=== PATIENT | female | born 1990 | race Caucasian/White ===

== ENCOUNTER 2019-02-06 13:06 | Observation (INO) ==
[2019-02-06 13:58] LABS: Bilirubin,Urine Negative (Negative); Blood,Urine Negative (Negative); Clarity,Urine Clear (Clear); Color,Urine Yellow (Yellow); Glucose,Urine (UA) Normal (Normal); Ketones,Urine 40 mg/dL (Negative); Leukocyte Esterase,Urine Negative (Negative); Nitrite,Urine Negative (Negative); Protein,Urine Negative (Neg-Trace); Specific Gravity,Urine 1.021 (1.010-1.025); Urobilinogen,Urine Normal (Normal)
[2019-02-06 14:02] LABS: Basophils % 0.1 %; Eosinophils % 0.3 %; Hematocrit 33.5 % (35.3-44.9); Hemoglobin 11.4 g/dL (11.5-15.4); Immature Granulocytes % 0.3 % (0-4); Lymphocytes # 1.3 K/mcL (0.6-4.6); Lymphocytes % 15.2 %; Mean Corpuscular Hemoglobin 30.2 pg (28.0-33.3); Mean Corpuscular Volume 88.9 fL (83.0-100.0); Mean Platelet Volume 10.7 fL (9.4-12.4); Monocytes # 0.5 K/mcL (0.0-1.3); Monocytes % 5.8 %; Neutrophils # 6.8 K/mcL (1.6-8.9); Platelet Count 165 K/mcL (140-400); Red Blood Count 3.77 M/mcL (3.82-4.97); Red Cell Distribution Width 13.6 % (11.5-14.5); Segmented Neutrophils % 78.3 %; White Blood Count 8.7 K/mcL (4.3-11.1)
[2019-02-06 14:07] LABS: Protein/Creatinine Ratio,Urine 0.12 mg/mg (0.00-0.20)
[2019-02-06 14:18] LABS: Amylase 30 Units/L (29-103); Lipase 23 Units/L (11-82)
[2019-02-06 14:19] LABS: Alanine Aminotransferase 10 Units/L (7-52); Aspartate Amino Transferase 16 Units/L (13-39); BUN/Creatinine Ratio 19 (6-26); Blood Urea Nitrogen 10 mg/dL (6-20); Lactate Dehydrogenase 125 Units/L (140-271); Uric Acid 3.9 mg/dL (2.3-7.6); eGFR For African Americans > 60 (> 60); eGFR For Non-African Americans > 60 (> 60)
--- NOTE | 2019-02-06 15:50 | Discharge Summary ---
Date of Encounter: 02/06/19 Time of Encounter: 15:50 - Discharge Diagnosis (1) 33 weeks gestation of Priority: Primary Status: Acute Comments: admitted for observation (2) NST (non-stress test) reactive on surveillance Priority: Secondary Status: Acute Comments: FHR baseline 135 bpm moderate variability +15x15 accels no decels noted. - Discharge Medications Prescriptions: No Action Ferrous Sulfate [Iron] 325 mg PO DAILY Pnv95/Ferrous Fumarate/FA [ Vitamin Tablet] 1 tab PO DAILY Home Medications: Ferrous Sulfate [Iron] 325 mg PO DAILY 02/06/19 [History] Pnv95/Ferrous Fumarate/FA [ Vitamin Tablet] 1 tab PO DAILY 02/06/19 [History] Allergies/Adverse Reactions: Allergy/AdvReac Type Severity Reaction Status Date / Time No Known Allergies Allergy Verified 02/06/19 13:28 Data Procedures and tests throughout hospitalization: Laboratory Tests 02/06/19 02/06/19 02/06/19 13:42 13:42 13:42 WBC 8.7 RBC 3.77 L Hgb 11.4 L Hct 33.5 L MCV 88.9 MCH 30.2 MCHC 34.0 RDW 13.6 Plt Count 165 MPV 10.7 Immature Gran % 0.3 Seg Neutrophils % 78.3 Lymphocytes % 15.2 Monocytes % 5.8 Eosinophils % 0.3 Basophils % 0.1 Neutrophils # 6.8 Lymphocytes # 1.3 Monocytes # 0.5 Eosinophils # 0.0 Basophils # 0.0 BUN Creatinine Est GFR ( Amer) Est GFR (Non-Af Amer) BUN/Creatinine Ratio Uric Acid AST ALT Lactate Dehydrogenase Amylase 30 Lipase 23 Urine Color Urine Clarity Urine pH Ur Specific [place] Urine Protein Urine Glucose (UA) Urine Ketones Urine Blood Urine Nitrite Urine Bilirubin Urine Urobilinogen Ur Leukocyte Esterase Ur Culture Indicated? Urine Creatinine 98 Protein/Creatinin Ratio 0.12 Urine Total Protein 12 02/06/19 02/06/19 13:42 13:42 WBC RBC Hgb Hct MCV MCH MCHC RDW Plt Count MPV Immature Gran % Seg Neutrophils % Lymphocytes % Monocytes % Eosinophils % Basophils % Neutrophils # Lymphocytes # Monocytes # Eosinophils # Basophils # BUN 10 Creatinine 0.54 L Est GFR ( Amer) > 60 Est GFR (Non-Af Amer) > 60 BUN/Creatinine Ratio 19 Uric Acid 3.9 AST 16 ALT 10 Lactate Dehydrogenase 125 L Amylase Lipase Urine Color Yellow Urine Clarity Clear Urine pH 6.0 Ur Specific [place] 1.021 Urine Protein Negative Urine Glucose (UA) Normal Urine Ketones 40 H Urine Blood Negative Urine Nitrite Negative Urine Bilirubin Negative Urine Urobilinogen Normal Ur Leukocyte Esterase Negative Ur Culture Indicated? NO Urine Creatinine Protein/Creatinin Ratio Urine Total Protein Labs on day of discharge: Labs from last 24 hours 02/06/19 02/06/19 02/06/19 13:42 13:42 13:42 WBC 8.7 RBC 3.77 L Hgb 11.4 L Hct 33.5 L MCV 88.9 MCH 30.2 MCHC 34.0 RDW 13.6 Plt Count 165 MPV 10.7 Immature Gran % 0.3 Seg Neutrophils % 78.3 Lymphocytes % 15.2 Monocytes % 5.8 Eosinophils % 0.3 Basophils % 0.1 Neutrophils # 6.8 Lymphocytes # 1.3 Monocytes # 0.5 Eosinophils # 0.0 Basophils # 0.0 BUN 10 Creatinine 0.54 L Est GFR ( Amer) > 60 Est GFR (Non-Af Amer) > 60 BUN/Creatinine Ratio 19 Uric Acid 3.9 AST 16 ALT 10 Lactate Dehydrogenase 125 L Amylase Lipase Urine Color Yellow Urine Clarity Clear Urine pH 6.0 Ur Specific [place] 1.021 Urine Protein Negative Urine Glucose (UA) Normal Urine Ketones 40 H Urine Blood Negative Urine Nitrite Negative Urine Bilirubin Negative Urine Urobilinogen Normal Ur Leukocyte Esterase Negative Ur Culture Indicated? NO Urine Creatinine Protein/Creatinin Ratio Urine Total Protein 02/06/19 02/06/19 13:42 13:42 WBC RBC Hgb Hct MCV MCH MCHC RDW Plt Count MPV Immature Gran % Seg Neutrophils % Lymphocytes % Monocytes % Eosinophils % Basophils % Neutrophils # Lymphocytes # Monocytes # Eosinophils # Basophils # BUN Creatinine Est GFR ( Amer) Est GFR (Non-Af Amer) BUN/Creatinine Ratio Uric Acid AST ALT Lactate Dehydrogenase Amylase 30 Lipase 23 Urine Color Urine Clarity Urine pH Ur Specific [place] Urine Protein Urine Glucose (UA) Urine Ketones Urine Blood Urine Nitrite Urine Bilirubin Urine Urobilinogen Ur Leukocyte Esterase Ur Culture Indicated? Urine Creatinine 98 Protein/Creatinin Ratio 0.12 Urine Total Protein 12 Date of admission: 02/06/19 13:06 Primary care physician: PCP NONE Discharging clinician: Roopa Macias Anticipated date of discharge: 08/08/19 - Patient Status Disposition: Home, Self-Care Condition: Good Functional capacity at discharge: independent ambulation - Discharge Instructions Follow Up With: NONE,PCP [Primary Care Provider] - Tala Manzano MD [Partnered Physician] - - Diet and Activity Activity: increase activity as tolerated Diet: regular diet Hospital Course PATENT AGENT Hospital course: Patient is a 28 y/o @ 33w5d presented to labor and delivery with complaints of RUQ pain around 1100. Patient denies contractions, LOF or VB. Patient denies the pain at this time. She reports the pain was dull and only lasted for about 15 min. Patient reports good movement. Time Attestation: Total time spent providing and/or coordinating discharge services: Time Spent: Less than 30 minutes Exam - Constitutional General appearance IM: A&O X 3, pleasant, answers questions appropriately - Respiratory Respiratory exam: Present: CTAB - Cardiovascular Cardiovascular exam IM: Present: RRR, +S1, +S2 - GI/Abdominal GI/Abdominal exam IM: normal bowel sounds - Uterine Tone: Firm - Extremities Exam Extremities exam IM: Present: full ROM, normal capillary refill, normal inspection - Neurological Exam Neurological exam: alert, oriented X3, reflexes normal - Other Additional findings: FHR 135 bpm moderate variability +15x15 accels no decels noted. Occasional contraction noted. Cat. 1 tracing. - VTE Reasons for not Prescribing Prophylaxis: Treatment not Indicated - Low risk for VTE
== END 2019-02-06 16:00 | disposition home or self-care (01) ==
LOC: 1NENULAB
PROVIDERS: ADMIT Advanced Practice Midwife; ATTEND Advanced Practice Midwife

== ENCOUNTER 2019-03-21 10:00 | Inpatient (IN) ==
[2019-03-21] MEDS ORDERED: *HR* Nalbuphine 10 MG/ML AMPUL IVP PRN (10:24)
[2019-03-21] MEDS ORDERED: Naloxone 0.4 MG/ML INJ IVP PRN (10:24)
[2019-03-21] MEDS ORDERED: Metoclopramide 10 MG/2 ML VIAL IVP PRN (10:24)
[2019-03-21] MEDS ORDERED: Ondansetron 4 MG/2 ML VIAL IVP PRN (10:24)
[2019-03-21] MEDS ORDERED: Lidocaine 1% 20 ML MDV ID PRN (10:24)
[2019-03-21] MEDS ORDERED: Famotidine 20 MG/2 ML VIAL IVP PRN (10:24)
[2019-03-21] MEDS ORDERED: Ringers Solution, Lactated 1,000 ML IVC SCH (10:30)
[2019-03-21] MEDS ORDERED: FLU Vac QV 19-20 (6Month+)/PF 0.5 ML SYRINGE IM ONE (10:48)
[2019-03-21 11:11] LABS: Basophils % 0.4 %; Eosinophils % 0.6 %; Hematocrit 38.1 % (35.3-44.9); Immature Granulocytes % 0.3 % (0-4); Lymphocytes # 1.4 K/mcL (0.6-4.6); Lymphocytes % 20.2 %; Mean Corpuscular HGB Conc 34.1 g/dL (31.6-35.5); Mean Corpuscular Volume 90.7 fL (83.0-100.0); Mean Platelet Volume 11.3 fL (9.4-12.4); Monocytes # 0.6 K/mcL (0.0-1.3); Monocytes % 8.3 %; Platelet Count 169 K/mcL (140-400); Red Cell Distribution Width 13.1 % (11.5-14.5); Segmented Neutrophils % 70.2 %; White Blood Count 7.1 K/mcL (4.3-11.1)
[2019-03-21] MEDS ORDERED: miSOPROStol 25 MCG TABLET VG PRN (11:40)
[2019-03-21 12:05] LABS: Amphetamine Screen,Urine Negative ng/mL (Cutoff=1000); Barbiturate Screen,Urine Negative ng/mL (Cutoff=200); Benzodiazepines Screen,Urine Negative ng/mL (Cutoff=200); Cannabinoid Screen,Urine Negative ng/mL (Cutoff = 50); Cocaine Screen,Urine Negative ng/mL (Cutoff= 300); Opiate Screen,Urine Negative ng/mL (Cutoff=300); Phencyclidine Screen,Urine Negative ng/mL (Cutoff=25)
--- NOTE | 2019-03-21 13:07 | Event Note ---
Date of Encounter: 03/21/19 Time of Encounter: 13:06 Tiffany is a 28-year-old female who presented to labor and delivery for induction of labor. On cervical examination she is having 2-3 cm 50% effaced and -2 station. 60 mL Nicholson was placed. Patient will be started on misoprostol. heart rate in the 140s with accelerations. Contractions every 2 minutes.
[2019-03-21] MEDS ORDERED: Oxytocin 20 units/ LR 1000 mL 20 UNIT/1,000 ML BAG IVC SCH ×2 (14:15→20:41)
--- NOTE | 2019-03-21 15:02 | Event Note ---
Date of Encounter: 03/21/19 Time of Encounter: 15:01 Vaginal exam performed. Nicholson out of cervix. Vaginal exam shows cervix to be 8 cm/80% effaced and -1 station. Artificial rupture membranes performed with clear fluid being noted. heart rate 160s with accelerations. Contractions every 2-3 minutes.
--- NOTE | 2019-03-21 15:23 | OB/GYN History & Physical ---
Date of Encounter: 03/21/19 Time of Encounter: 12:15 Assessment and Plan (1) 39 weeks gestation of Current visit: Yes Status: Acute History of Present Illness Chief complaint: Induction of labor HPI: Ms. Luong is a 28 year old female who presents to labor and delivery at 39 weeks and 5 days for induction. On presentation her cervix is 23 750% effaced and -2 station. Nicholson catheter placed. She is doing well without complaints. This patient has no drug allergies. She has no chronic medical conditions. Surgical history is negative. Socially she denies tobacco, alcohol, illicit drug use. She has no history of abnormal Pap smears. She does have a history of STDs. She has no history of abnormal breast findings. Obstetric history significant for one term vaginal delivery and incompetent. Family history significant for hypertension and diabetes. Past Med Surg Social Fam HX - Past Medical History Medical history: no medical history Psychiatric history: no psych history - Past Surgical History Surgical History: no surgical history - Social History Smoking Status: Never smoker Smokeless Tobacco Status: No Alcohol use: none Drug use: none - Family History Mother Living Status: Still Living Hx Family Cardiac Disorders: No Hx Family Respiratory Disorders: No Hx Family Cancer: No Hx Family GI Disorders: No Hx Family Genitourinary Disorders: No Hx Family Endocrine Disorder: No Hx Family Musculoskeletal Disorders: No Hx Family Neuromuscular Disorders: No Hx Family Neurologic Disorders: No Hx Family HEENT Disorders: No Hx Family Autoimmune Disorders: No Hx Family Reproductive Disorders: No Hx Family Psychosocial Disorders: No Hx Family Medical Disorders: No Obstetrical History - Pregnancies : 2 Para: 1 Term: 1 Livin Medications and Allergies Ferrous Sulfate [Iron] 325 mg PO DAILY 02/06/19 [History] Pnv95/Ferrous Fumarate/FA [ Vitamin Tablet] 1 tab PO DAILY 02/06/19 [History] Allergy/AdvReac Type Severity Reaction Status Date / Time No Known Allergies Allergy Verified 02/06/19 13:28 Review of System OB All systems PM: reviewed and no additional remarkable complaints except as stated Exam - Constitutional Constitutional: well developed, well nourished, no acute distress, mild distress - HEENT HEENT: EOMI, PERRL, Normocephaly - Neck Neck exam: full ROM, normal inspection - Lungs Respiratory exam: CTAB - Cardiovascular Cardiovascular exam: RRR - Abdomen Abdomen: Present: bowel sounds normal, gravid, non tender - Extremities Extremities exam: full ROM, normal inspection - Vagina Vagina: Present: normal moisture - Cervix Dilation: 50 Station: -1 - Uterus Uterus exam: Present: normal size Results Result Diagrams: 03/21/19 10:40 All other labs normal. - VTE Reasons for not Prescribing Prophylaxis: Treatment not Indicated - Low risk for VTE
--- NOTE | 2019-03-21 17:23 | OB/GYN Procedure Note ---
Delivery - Delivery Date: 03/21/19 Provider: Uzair Montero Intrapartum events: none Delivery induction: oxytocin, boone Delivery augmentation: rupture of membranes Delivery monitor: external uterine, internal FHT Anesthesia: none Quantitated Blood Loss: 300 - Infant (s) A Infant Delivery Date: 03/21/19 Infant Delivery Time: 17:02 Presentation: vertex Position: OA Route of delivery: Gender: Female Viability: Viable Pounds: 7 Ounces: 6 Weight Gram: 3.335 kg at 1 minute: 8 at 5 mins: 9 Shoulder Dystocia: not encountered Placenta: spontaneous Cord: 3 umbilical vessels - Repair Episiotomy: none Laceration Description: Perineal - 2nd Degree - Complications Delivery complications: none Delivery comments: Patient progressed rapidly to complete and pushing. She is spontaneous vaginal delivery of a female infant over an intact perineum. Incisional the perineum easily. The rest of the infant was delivered with 1 push. Infant cried immediately upon delivery. The cord was clamped cut after 1 minute. The was then passed to nurse in attendance. Cord blood was obtained. Placenta was delivered spontaneously and intact. There are no cervical, vaginal, periurethral lacerations noted. There was a second-degree perineal laceration which is repaired with 3-0 Vicryl suture in usual fashion. Patient delivered a female infant weight is 7 lbs. 6 oz. 3335 g, Apgars are 8 at 1 minute and 9 at 5 minutes. Estimated blood loss 300 mL. - Disposition Mom disposition: stable in LDR disposition: stable in LDR
[2019-03-21] MEDS ORDERED: Acetaminophen 325 MG TABLET PO PRN (20:41)
[2019-03-21] MEDS ORDERED: Rho Immune Globulin 1,500 UNIT SYRINGE IM PRN (20:41)
[2019-03-21] MEDS ORDERED: Measles/Mumps/Rubella Vacc 0.5 ML VIAL SQ PRN (20:41)
[2019-03-22 05:57] LABS: Basophils % 0.2 %; Eosinophils % 0.3 %; Hematocrit 35.9 % (35.3-44.9); Hemoglobin 12.2 g/dL (11.5-15.4); Immature Granulocytes % 0.3 % (0-4); Lymphocytes # 1.8 K/mcL (0.6-4.6); Lymphocytes % 14.9 %; Mean Corpuscular Hemoglobin 30.3 pg (28.0-33.3); Mean Corpuscular Volume 89.3 fL (83.0-100.0); Mean Platelet Volume 11.6 fL (9.4-12.4); Monocytes # 0.9 K/mcL (0.0-1.3); Monocytes % 7.9 %; Platelet Count 160 K/mcL (140-400); Red Blood Count 4.02 M/mcL (3.82-4.97); Red Cell Distribution Width 13.1 % (11.5-14.5); Segmented Neutrophils % 76.4 %
[2019-03-22 06:04] LABS: White Blood Count 11.8 K/mcL (4.3-11.1)
--- NOTE | 2019-03-22 08:25 | Discharge Summary ---
Date of Encounter: 03/22/19 Time of Encounter: 08:23 - Discharge Diagnosis (1) Vaginal delivery Priority: Primary Status: Acute Comments: continue routine care discharge home today follow up with Dr. Montero in 4-6 weeks (2) Breast feeding status of mother Priority: Secondary Status: Acute Comments: support prn - Discharge Medications Prescriptions: New Ferrous Sulfate 325 mg PO DAILY tablet Continued Pnv95/Ferrous Fumarate/FA [ Vitamin Tablet] 1 tab PO DAILY Discontinued Ferrous Sulfate [Iron] 325 mg PO DAILY Home Medications: Pnv95/Ferrous Fumarate/FA [ Vitamin Tablet] 1 tab PO DAILY 02/06/19 [History] Ferrous Sulfate 325 mg PO DAILY tablet 03/22/19 [Rx] Allergies/Adverse Reactions: Allergy/AdvReac Type Severity Reaction Status Date / Time No Known Allergies Allergy Verified 02/06/19 13:28 Data Procedures and tests throughout hospitalization: Laboratory Tests 03/21/19 03/21/19 03/22/19 10:40 10:40 05:21 WBC 7.1 11.8 H D RBC 4.20 4.02 Hgb 13.0 12.2 Hct 38.1 35.9 MCV 90.7 89.3 MCH 31.0 30.3 MCHC 34.1 34.0 RDW 13.1 13.1 Plt Count 169 160 MPV 11.3 11.6 Immature Gran % 0.3 0.3 Seg Neutrophils % 70.2 76.4 Lymphocytes % 20.2 14.9 Monocytes % 8.3 7.9 Eosinophils % 0.6 0.3 Basophils % 0.4 0.2 Neutrophils # 5.0 9.0 H Lymphocytes # 1.4 1.8 Monocytes # 0.6 0.9 Eosinophils # 0.0 0.0 Basophils # 0.0 0.0 Urine Opiates Screen Negative Ur Buprenorphine Scrn Negative Ur Barbiturates Screen Negative Ur Phencyclidine Scrn Negative Ur Amphetamines Screen Negative U Benzodiazepines Scrn Negative Urine Cocaine Screen Negative U Marijuana (THC) Screen Negative Ur Drug Screen Interp See Below Labs on day of discharge: Labs from last 24 hours 03/22/19 03/21/19 03/21/19 05:21 10:40 10:40 WBC 11.8 H D 7.1 RBC 4.02 4.20 Hgb 12.2 13.0 Hct 35.9 38.1 MCV 89.3 90.7 MCH 30.3 31.0 MCHC 34.0 34.1 RDW 13.1 13.1 Plt Count 160 169 MPV 11.6 11.3 Immature Gran % 0.3 0.3 Seg Neutrophils % 76.4 70.2 Lymphocytes % 14.9 20.2 Monocytes % 7.9 8.3 Eosinophils % 0.3 0.6 Basophils % 0.2 0.4 Neutrophils # 9.0 H 5.0 Lymphocytes # 1.8 1.4 Monocytes # 0.9 0.6 Eosinophils # 0.0 0.0 Basophils # 0.0 0.0 Urine Opiates Screen Negative Ur Buprenorphine Scrn Negative Ur Barbiturates Screen Negative Ur Phencyclidine Scrn Negative Ur Amphetamines Screen Negative U Benzodiazepines Scrn Negative Urine Cocaine Screen Negative U Marijuana (THC) Screen Negative Ur Drug Screen Interp See Below Date of admission: 03/21/19 10:04 Primary care physician: PCP [facility] Consults: 03/21/19 20:41 Consult to Breakdown Man [CONS] Routine Comment: Vaginal delivery, consult needed Discharging clinician: Roopa Macias Anticipated date of discharge: 03/22/19 - Patient Status Disposition: Home, Self-Care Condition: Good - Discharge Instructions Follow Up With: NONE,PCP [Primary Care Provider] - Uzair Montero MD [Partnered Physician] - - Diet and Activity Activity: increase activity as tolerated Diet: regular diet Hospital Course Reason for admission: induction of labor Delivery: Episiotomy: none Laceration: 2nd degree Other procedures: none complications: none Discharge diagnosis: IUP at term delivered [place] baby: female (breast feeding) Time Attestation: Total time spent providing and/or coordinating discharge services: Time Spent: Less than 30 minutes Exam - Constitutional Vitals: Temp Pulse Resp BP Pulse Ox 98.0 F 94 16 109/76 97 03/22/19 07:44 03/22/19 07:44 03/22/19 07:44 03/22/19 07:44 03/22/19 07:44 General appearance IM: A&O X 3, pleasant, answers questions appropriately - Respiratory Respiratory exam: Present: CTAB - Cardiovascular Cardiovascular exam IM: Present: RRR, +S1, +S2 - GI/Abdominal GI/Abdominal exam IM: normal bowel sounds - Uterine Tone: Firm Uterus Position: At Umbilicus, Midline - Extremities Exam Extremities exam IM: Present: full ROM, normal capillary refill, normal inspection - Neurological Exam Neurological exam: alert, oriented X3, reflexes normal
[2019-03-22] MEDS ORDERED: Prenatal Vit/FA 1 EACH TABLET PO SCH (09:00)
[2019-03-22] MEDS ORDERED: FLU Vac QV 19-20 (6Month+)/PF 0.5 ML SYRINGE IM ONE (14:33)
[2019-03-22 15:48] VITALS: BP 111/75
[2019-03-22] MEDS ORDERED: Benzocaine/Menthol 56 GM AEROSOL SPRAY TP ONE (19:45)
== END 2019-03-22 20:00 | disposition home or self-care (01) | DRG 807 ==
LOC: 1NENULAB 10:04 → 1NENUOBS 21:46
PROVIDERS: ADMIT Obstetrics & Gynecology; ATTEND Obstetrics & Gynecology

== ENCOUNTER 2022-03-27 08:00 | Inpatient (IN) ==
[2022-03-28] MEDS ORDERED: *HR* Nalbuphine 10 MG/ML AMPUL IV PRN (06:45)
[2022-03-28] MEDS ORDERED: Famotidine 20 MG/2 ML VIAL IVP PRN (06:45)
[2022-03-28] MEDS ORDERED: Lidocaine 1% 20 ML MDV INFILT PRN (06:45)
[2022-03-28] MEDS ORDERED: Naloxone 0.4 MG/ML INJ IVP PRN (06:45)
[2022-03-28] MEDS ORDERED: Ringers Solution, Lactated 1,000 ML IVC SCH (06:45)
[2022-03-28] MEDS ORDERED: Metoclopramide 10 MG/2 ML VIAL IVP PRN (06:45)
[2022-03-28] MEDS ORDERED: Ondansetron 4 MG/2 ML VIAL IVP PRN (06:45)
[2022-03-28] MEDS ORDERED: Oxytocin 30 UNIT/503 ML BAG IVC ONE (06:56)
[2022-03-28 07:21] LABS: Basophils % 0.1 %; Eosinophils % 0.5 %; Hematocrit 35.2 % (35.3-44.9); Hemoglobin 11.7 g/dL (11.5-15.4); Immature Granulocytes % 0.3 % (0-4); Lymphocytes # 2.1 K/mcL (0.6-4.6); Lymphocytes % 23.7 %; Mean Corpuscular HGB Conc 33.2 g/dL (31.6-35.5); Mean Corpuscular Hemoglobin 28.1 pg (28.0-33.3); Mean Corpuscular Volume 84.4 fL (83.0-100.0); Mean Platelet Volume 11.7 fL (9.4-12.4); Monocytes # 0.7 K/mcL (0.0-1.3); Monocytes % 8.3 %; Neutrophils # 5.9 K/mcL (1.6-8.9); Platelet Count 180 K/mcL (140-400); Red Blood Count 4.17 M/mcL (3.82-4.97); Red Cell Distribution Width 14.5 % (11.5-14.5); Segmented Neutrophils % 67.1 %; White Blood Count 8.7 K/mcL (4.3-11.1)
[2022-03-28] MEDS ORDERED: Ondansetron ODT 4 MG TAB.RAPDIS SL PRN (08:21)
[2022-03-28] MEDS ORDERED: Oxytocin 30 UNIT/503 ML BAG IVC SCH (08:21)
[2022-03-28] MEDS ORDERED: Benzocaine/Menthol 56 GM AEROSOL SPRAY TP PRN (08:21)
[2022-03-28] MEDS ORDERED: Lanolin 7 G OINT...G. TP PRN (08:21)
[2022-03-28] MEDS ORDERED: Measles/Mumps/Rubella Vacc 0.5 ML VIAL SQ PRN (08:21)
[2022-03-28] MEDS: Acetaminophen 325 MG TABLET PO SCH ×3 (08:29→22:43)
[2022-03-28] MEDS ORDERED: FERROUS SULFATE 325 MG PO SCH (09:00)
[2022-03-28 09:55] LABS: Amphetamine Screen,Urine Negative ng/mL (Cutoff=1000); Barbiturate Screen,Urine Negative ng/mL (Cutoff=200); Benzodiazepines Screen,Urine Negative ng/mL (Cutoff=200); Cannabinoid Screen,Urine Negative ng/mL (Cutoff = 50); Cocaine Screen,Urine Negative ng/mL (Cutoff= 300); Opiate Screen,Urine Negative ng/mL (Cutoff=300); Phencyclidine Screen,Urine Negative ng/mL (Cutoff=25)
[2022-03-28] MEDS: Ibuprofen 600 MG TABLET PO SCH ×2 (10:30→17:40)
[2022-03-28] MEDS: Prenatal Vit/FA 1 EACH TABLET PO SCH (15:09)
[2022-03-29] MEDS: Ibuprofen 600 MG TABLET PO SCH ×2 (00:15→08:26)
[2022-03-29] MEDS: Acetaminophen 325 MG TABLET PO SCH ×2 (03:12→08:26)
[2022-03-29 03:58] VITALS: TEMP 98
[2022-03-29 04:38] LABS: Basophils % 0.4 %; Eosinophils # 0.1 K/mcL (0.0-0.6); Eosinophils % 0.9 %; Hematocrit 30.3 % (35.3-44.9); Immature Granulocytes % 0.4 % (0-4); Lymphocytes # 2.8 K/mcL (0.6-4.6); Lymphocytes % 26.9 %; Mean Corpuscular HGB Conc 32.3 g/dL (31.6-35.5); Mean Corpuscular Hemoglobin 27.6 pg (28.0-33.3); Mean Corpuscular Volume 85.4 fL (83.0-100.0); Mean Platelet Volume 11.7 fL (9.4-12.4); Monocytes # 0.9 K/mcL (0.0-1.3); Monocytes % 8.3 %; Neutrophils # 6.5 K/mcL (1.6-8.9); Platelet Count 188 K/mcL (140-400); Red Blood Count 3.55 M/mcL (3.82-4.97); Red Cell Distribution Width 14.5 % (11.5-14.5); Segmented Neutrophils % 63.1 %; White Blood Count 10.3 K/mcL (4.3-11.1)
[2022-03-29 04:42] LABS: Hemoglobin 9.8 g/dL (11.5-15.4)
[2022-03-29 07:25] VITALS: BP 99/61; PULSE 93; O2SAT 96
[2022-03-29] MEDS: Prenatal Vit/FA 1 EACH TABLET PO SCH (08:26)
== END 2022-03-29 14:12 | disposition home or self-care (01) | DRG 807 ==
LOC: 1NENULAB 03-28 06:44 → 1NENUOBS 03-28 09:33
PROVIDERS: ADMIT Obstetrics & Gynecology; ATTEND Obstetrics & Gynecology